=== PATIENT | male | born 1970 | race Caucasian/White ===

== ENCOUNTER 2021-04-07 12:43 | Outpatient (CLI) | payer OTHER, SELFPAY ==
--- NOTE | 2021-04-07 | ECHO_ITS ---
Patient Info Name: Shaquille Jovel Age: 50 years : 1970 Gender: Male Ht: 72 in Wt: 380 lbs BSA: 3.05 m2 HR: 79 bpm BP: 167 / 87 mmHg Heart Rhythm: Sinus Rhythm Technical Quality: Fair Exam Date: 04/07/2021 1:15 PM Exam Location: [facility] Patient Status: Outpatient Admit Date: 04/07/2021 Staff Ordering Physician: Juanita, Shanell SU Warp Bleaching Vat Tender: Jeanine Field RDCS Attending Provider: Nicholas, Shanell SU Exam Type: CA echo doppler color flow Study Info Indications - ACOSTA Complete two-dimentional, color flow and Doppler transthoracic echocardiogram is performed with agitated saline and with contrast to opacify the left ventricle and to improve the delineation of the left ventricle endocardial borders. Summary 1. Technically difficult exam because of patient obesity. 2. Normal appearing left ventricular size and systolic function. 3. Grade 1 diastolic noncompliance. 4. No significant valvular abnormality. Left Ventricle Left ventricular chamber dimension is normal. Left ventricular systolic function is normal, estimated at 60-65%. The left ventricular diastolic function is grade I diastolic dysfunction. Right Ventricle Right ventricular chamber dimension is normal. Left Atria Left atrial chamber dimension is normal. Right Atria Right atrial chamber dimension is normal. Aortic Valve The aortic valve is normal. Pulmonic Valve The pulmonic valve is not well visualized. Mitral Valve The mitral valve has normal leaflets. Tricuspid Valve The tricuspid valve leaflets are normal. Pericardium/Pleural The pericardium appears normal. Aorta The aortic root size at the sinus of Valsalva is normal. Left Ventricular Outflow Tract Name Value Normal LVOT 2D LVOT Diameter 2.2 cm LVOT Doppler LVOT Peak Gradient 13 mmHg LVOT Mean Gradient 8 mmHg LVOT VTI 34 cm LVOT VTI/AV VTI Ratio 1.0 LVOT Stroke Volume 128 ml LVOT CO 31.4 l/min LVOT CI 10.3 l/min/m2 Pulmonic Valve Name Value Normal PV Doppler PV Peak Gradient 5 mmHg Mitral Valve Name Value Normal MV Doppler MV Decel [place] 682 cm/s2 MV PHT 58 ms MV Area (PHT) 3.8 cm2 4.0-5.0 MV Diastolic Function MV E Peak Velocity
--- NOTE | 2021-04-07 17:10 | WPDSIXMINUTE ---
Six Minute Walk Procedure Procedure Performed Pulmonary Stress Test (6 min walk) Six Minute Walk This is a 6 minutes walk test. The test was performed and interpreted in accordance with the 2014 ERS/ATS task force guidelines. Findings: The patient's resting room air oxygen saturation measured by pulse oximetry was 96% and her heart rate was 84 bpm. Patient ambulated for 335 meters and oxygen saturation remained 92 to 97%. Heart rate at the end of the study was 104 bpm. The patient did not qualify for supplemental oxygen at rest or with ambulation. There are no prior studies for comparison.
--- NOTE | 2021-04-07 17:12 | WPDPFTINT ---
PFT Procedure Performed PFT Procedure Performed Spirometry with Pre/Post Bronchodilator Plethysmography (Lung Vol) Diffusing Cap (DLCO) Flow Vol Loop PFT Interpretation This is a pulmonary function test with pre and post-bronchodilator spirometry, plethysmography and diffusing capacity. The test was performed and results interpreted in accordance with the 2019 and 2005 ATS/ERS Task Force guidelines respectively using the Global Lung Function Initiative-2012 reference equations. Patient demonstrated good effort and cooperation. Reproducibility criteria were met. The quality of the pre bronchodilator spirometry maneuver was Grade A and post bronchodilator spirometry maneuver was Grade A. Findings: Spirometry: there is decreased maximal expiratory airflow at all lung volumes with concave expiratory flow tracing. The pre bronchodilator FVC is 2.59 L, 48% predicted. The pre bronchodilator FEV1 is 1.70 L, 40% predicted. The FEV1: FVC ratio 66%. The post bronchodilator FVC is 2.61 L, representing a 1% increase. The post bronchodilator FEV1 is 1.82 L, representing an 8% increase. Plethysmography: The total lung capacity is 4.08 L, 55% predicted. The functional residual capacity is 1.76 L, 46% predicted. The residual volume is 1.47 L, 69% predicted. Diffusing capacity: The absolute diffusion capacity is 23.5, 74% predicted. The diffusing capacity corrected for alveolar volume is 6.19, 139% predicted. Impression: There is a combined obstructive and restrictive ventilatory abnormality. There are no guidelines to assign the severity of obstruction and restriction with a combined abnormality. In my opinion, given the concave expiratory flow tracing and mildly decreased FEV1:FVC ratio and moderately severe restrictive abnormality I would state there is a mild obstructive abnormality and a moderately severe restrictive abnormality resulting in a severely decreased FEV1. There is no significant improvement after inhaling a single dose of albuterol. The diffusing capacity is mildly decreased but increased when corrected for alveolar volume. There are no prior studies for comparison
== END 2021-04-07 12:44 | disposition home or self-care (01) ==
LOC: ANHCARD 12:45
PROVIDERS: Visit Provider Nurse Practitioner
DX: R06.09 Other forms of dyspnea (principal)
CPT/HCPCS: 93306; 94060; 94618; 94726; 94729

== ENCOUNTER 2021-08-20 08:04 | Emergency (ER) | payer OTHER, SELFPAY ==
[2021-08-20 08:14] VITALS: BP 120/93; PULSE 116; RESP 18; TEMP 36; O2SAT 96
--- NOTE | 2021-08-20 08:30 | ECG_ITS ---
Measurements Intervals [place] Rate: 112 P: [place]: 0 QRS: 22 QRSD: 110 T: 33 QT: 335 QTc: 459 Interpretive Statements ATRIAL FIBRILLATION WITH RAPID VENTRICULAR RESPONSE INCOMPLETE RIGHT BUNDLE BRANCH BLOCK DELAYED PRECORDIAL R/S TRANSITION ABNORMAL ECG Electronically Signed On 08-20-2021 15:11:43 INFRASTRUCTURE MANAGER by Mahad Yang D.O.
[2021-08-20 08:46] LABS: Basophils Absolute Auto 0.1 K/mm3 (0.0-0.1); Basophils Percent Auto 0.7 % (0.2-1.2); Eosinophils Absolute Auto 0.2 K/mm3 (0-0.3); Eosinophils Percent Auto 2.8 % (0-4.4); Hematocrit 45.1 % (42.0-52.0); Hemoglobin 15.1 g/dL (14.0-18.0); Immature Granulocyte Absolute 0.01 K/mm3 (0.00-0.031); Immature Granulocyte Percent A 0.1 % (0-0.5); Lymphocytes Absolute Auto 1.25 K/mm3 (0.9-3.2); Lymphocytes Percent Auto 15.2 % (18.3-44.2); Mean Corpuscular HGB Conc 33.5 g/dl (32-36); Mean Corpuscular Hemoglobin 31.9 pg (26-34); Mean Corpuscular Volume 95.3 fl (80-100); Mean Platelet Volume 10.3 fl (7.4-10.4); Monocytes Absolute Auto 0.6 K/mm3 (0.1-0.6); Monocytes Percent Auto 7.4 % (2.6-8.5); Neutrophils Absolute Auto 6.1 K/mm3 (1.3-6.7); Neutrophils Percent Auto 73.8 % (45.5-73.1); Platelet Count Result 306 k/mm3 (150-375); Red Blood Count 4.73 M/mm3 (4.6-6.20); Red Cell Distribution Width 12.8 % (11.5-14.5); White Blood Count 8.2 K/mm3 (4.5-10.0)
[2021-08-20 08:55] LABS: Anion Gap 14 mmol/L (8-16); Blood Urea Nitrogen 13 mg/dL (9-20); Carbon Dioxide 23 mmol/L (22-30); Chloride 103 mmol/L (98-107); Estimated CRCL calculation 108 ml/min; Estimated Glomerular Filt Rate > 60; Glucose 124 mg/dL (65-110); Potassium 3.5 mmol/L (3.4-5.0); Sodium 140 mmol/L (137-145)
[2021-08-20 08:57] LABS: INR 1.5; Prothrombin Time 17.7 Seconds (11.1-14.7)
[2021-08-20 08:58] LABS: Partial Thromboplastin Time 33.7 SECONDS (22.3-36.8)
--- NOTE | 2021-08-20 09:33 | ED.ARRPALP ---
HPI - Arrhythmia/Palpitations General Chief Complaint: Arrhythmia/Palpitations Stated Complaint: afib Time Seen by Provider: 08/20/21 08:45 Source: patient History of Present Illness HPI narrative: Patient reports longstanding history of paroxysmal A. fib. Reports he was seen by his second mate was found to be in A. fib and he was referred to the ER yesterday. He had to take care of his so did not come in this morning he had time so he came to the ER to be evaluated. Patient denies any symptoms. Ports occasional of his A. fib he'll have palpitations or develop shortness of breath denies any other symptoms currently denies any chest pain lightheadedness or dizziness. Reports the monitor pulse at home and a little bit may be fast and then will resolve on its own. He is currently on metoprolol and Eliquis for A. 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 EYES: Denies visual changes, redness, or discharge. ENT: Denies rhinorrhea, congestion, sore throat, or otalgia. CARDIOVASCULAR: Denies chest pain, palpitations, or edema. RESPIRATORY: Denies cough or dyspnea. GASTROINTESTINAL: Denies abdominal pain, nausea, vomiting, or diarrhea. GENITOURINARY: Denies dysuria or hematuria. SKIN: Denies rash or itching. MUSCULOSKELETAL: Denies back pain, joint pain, or myalgia. NEUROLOGIC: Denies headache, numbness, dizziness, or weakness. PSYCHIATRIC: Denies anxiety or depression. All systems reviewed & are unremarkable except as noted in HPI and below PMFSH Past Medical History Medical History Atrial fibrillation Family History Family History Mother Hypertension Father Hypertension Grandparent Family history of malignant neoplasm of breast Social History Social History Smoking status: Never smoker Exam Narrative: GENERAL: Well-appearing, well-nourished, and in no acute distress. HEAD: Normocephalic, atraumatic. EYES: PERRLA and EOMI. ENT: Nares clear, no rhinorrhea or epistaxis. Mucous membranes moist. NECK: Supple. No masses. No JVD CHEST: Clear to auscultation. No respiratory distress. No wheezes rales or rhonchi HEART: Regular no murmur heard. Normal peripheral pulses. ABDOMEN: Soft, nontender, nondistended, normal active bowel sounds. EXTREMITIES: Normal range of motion. No edema. SKIN: Warm, dry, no rash. NEURO: No focal deficits. Alert and oriented x3. PSYCH: Normal mood and affect. Course Reevaluation(s) Reevaluation #1: Patient was resting comfortably results and plan reviewed with patient patient is comfortable with outpatient plan. Discussed case with Dr. Salter who is comfortable seeing the patient as an outpatient given he has a history of this and is asymptomatic. Date: 08/20/21 Time: 09:40 Vital Signs Vital signs: Vital Signs Temperature 36.0 C L 08/20/21 08:14 Pulse Rate 116 H 08/20/21 08:14 Respiratory Rate 18 08/20/21 08:14 Blood Pressure 120/93 H 08/20/21 08:14 Pulse Oximetry 96 08/20/21 08:14 Temperature 36.0 C L 08/20/21 08:14 Pulse Rate 98 08/20/21 09:50 Respiratory Rate 18 08/20/21 09:50 Blood Pressure 114/89 08/20/21 09:50 Pulse Oximetry 97 08/20/21 09:50 MDM - Arrhythmia/Palpitations MDM Narrative Medical decision making narrative: H&P as above, vs with intermittent tachycardia resolved without intervention, pt looks clinically well, exam reassuring, labs reassuring, additional labs/img considered, symptomatic relief available as needed, on reevaluation pt continues to looks clinically well. Suspect paroxy
[2021-08-20 09:50] VITALS: BP 114/89; PULSE 98; RESP 18; O2SAT 97
[2021-08-20 09:52] LABS: Alanine Aminotransferase 39 U/L (4-50); Albumin Level 4.2 g/dL (3.5-5.1); Alkaline Phosphatase 84 U/L (38-126); Aspartate Amino Transferase 33 U/L (17-59); Bilirubin,Total 1.8 mg/dL (0.2-1.3)
== END 2021-08-20 10:35 | disposition home or self-care (01) ==
PROVIDERS: Emergency Provider Emergency Medicine; PCP Internal Medicine
DX: I48.91 Unspecified atrial fibrillation (principal)
CPT/HCPCS: 36415; 80048; 80076; 84443; 85025; 85610; 85730; 93005; 99284

== ENCOUNTER 2023-04-12 13:49 | Outpatient (CLI) | payer OTHER, SELFPAY ==
--- NOTE | 2023-04-12 15:43 | WPDPFTINT ---
PFT Procedure Performed PFT Procedure Performed Spirometry with Pre/Post Bronchodilator Plethysmography (Lung Vol) Diffusing Cap (DLCO) Flow Vol Loop PFT Interpretation This is a pulmonary function test with pre and post-bronchodilator spirometry, plethysmography and diffusing capacity. The test was performed and results interpreted in accordance with the 2019 and 2005 ATS/ERS Task Force guidelines respectively using the Global Lung Function Initiative-2012 reference equations. Patient demonstrated good effort and cooperation. Reproducibility criteria were met. The quality of the pre bronchodilator spirometry maneuver was Grade A and post bronchodilator spirometry maneuver was Grade A. Findings: Spirometry: The contour the inspiratory and expiratory flow tracing are normal. The pre bronchodilator FVC C is 2.60 L, 49% predicted. The pre bronchodilator FEV1 is 1.73 L, 42% predicted. The pre bronchodilator FEV1: FVC ratio 66%. The post bronchodilator FVC is 2.72 L, representing a 4% increase. The post bronchodilator FEV1 is 1.89 L, representing a 10% increase. The post bronchodilator FEV1: FVC ratio is 70%. Plethysmography: The total lung capacity is 4.54 L, 62% predicted. The functional residual capacity is 2.54 L, 67% predicted. The residual volume is 1.72 L, 79% predicted. Diffusion capacity: The diffusing capacity unadjusted for hemoglobin and carboxyhemoglobin is 23.3, 75% predicted. The diffusing capacity adjusted for alveolar volume is 5.40, 123% predicted. In comparison to previous pulmonary function testing on 04/07/2021 the post bronchodilator FVC is unchanged from 2.61 L to 2.72 L. The post bronchodilator FEV1 is unchanged from 1.82 L to 1.89 L. The total lung capacity is unchanged from 4.08 L to 4.54 L. The functional residual capacity is increased from 1.76 L to 2.54 L. The residual volume is increased from 1.47 L to 1.72 L. The diffusing capacity unadjusted for hemoglobin and carboxyhemoglobin is unchanged from 23.5 to 23.3. The diffusing capacity adjusted for alveolar volume is unchanged from 6.19 to 5.40 Impression: There is a combined obstructive and restrictive ventilatory abnormality. There are no guidelines to assign the severity of obstruction and restriction with a combined abnormality. In my opinion, given the mildly concave expiratory flow tracing and mildly decreased FEV1: FVC ratio and moderate restrictive abnormality I would state there is a mild obstructive abnormality and a moderate restrictive abnormality resulting in a severely decreased FEV1. There is no significant improvement after inhaling a single dose of albuterol. The diffusing capacity is normal. In comparison to previous pulmonary function testing on 04/07/2021 there has been a greater than anticipated time dependent increase in the functional residual capacity and residual volume with no significant change in the FVC, FEV1, total lung capacity or diffusing capacity. Clinical correlation is recommended.
== END 2023-04-12 13:50 | disposition home or self-care (01) ==
PROVIDERS: PCP Internal Medicine; Visit Provider Nurse Practitioner
DX: J44.9 Chronic obstructive pulmonary disease, unspecified (principal); R94.2 Abnormal results of pulmonary function studies
CPT/HCPCS: 94060; 94726; 94729